=== PATIENT | female | born 1995 | race Caucasian/White ===

== ENCOUNTER → 2023-03-31 10:32 | Outpatient (BNVA) | payer BC, SELFPAY | PROVIDERS: Visit Provider Nurse Practitioner | DX: E03.9 Hypothyroidism, unspecified (principal); R25.1 Tremor, unspecified; E04.9 Nontoxic goiter, unspecified | CPT/HCPCS: 80053; 82306; 83735; 84443; 85025 ==

== ENCOUNTER 2023-04-11 09:21 | Emergency (ER) | payer BC, SELFPAY ==
[2023-04-11 09:34] VITALS: BP 147/95; PULSE 94; RESP 14; TEMP 37; O2SAT 100
--- NOTE | 2023-04-11 09:46 | W.ED.ABDPA2 ---
Documented by User: Katalina Tirado PA-C 04/11/23 11:42 HPI - Abdominal Pain General: Chief Complaint: Abdominal Pain Stated Complaint: left side pain,blood in stool Time Seen by Provider: 04/11/23 09:39 Source: patient Mode of arrival: ambulatory Limitations: no limitations History of Present Illness: 28-year-old female presents to the ER today for blood in her stool that she noticed this morning. Patient reports this was in the water and was bright red. Patient reports she had hemorrhoids when she was however she had pain with those. Patient reports this was painless. She does admit that she has had to strain with bowel movements for the last couple of days. She also noticed after this bowel movement there was some mild left lower quadrant tenderness. She denies any fever or chills. Denies any nausea or vomiting. Denies any history of diverticulitis. Patient reports she is due to start her menstrual cycle in 4 days. Patient does not take a daily stool softener. Denies any pain with urination. Denies any blood in her urine. Review of Systems General: Reports: 10 or more systems reviewed and unremarkable except in HPI and below PFSH ED PFSH: Family History Father Diabetes Type 1 Heart disease Mother Thyroid disease Grandfather Thyroid disease maternal Denies family history of Clotting disorder Chronic kidney disease (CKD) Bleeding disorder Cancer Hypertension Stroke Social History Smoking and tobacco status: light tobacco smoker Alcohol intake: never Substance/Drug Use: never Household members: spouse and family Female Reproductive History: Para: 1 Physical Exam Const: COMMON NORMALS: no acute distress, average body habitus, patient oriented x3, no limitations, healthy appearing, alert and well nourished HENMT: COMMON NORMALS: normocephalic, atraumatic and moist oral mucous membranes HEAD & SCALP: normocephalic and atraumatic Resp: COMMON NORMALS: normal respiratory effort and clear to auscultation bilaterally AUSCULTATION: clear to auscultation bilaterally Cardio: COMMON NORMALS: regular rate, regular rhythm and No murmurs present (Cardio) RATE: regular rate RHYTHM: regular rhythm GI: COMMON NORMALS: Normal to inspection, nondistended, normoactive bowel sounds present, Soft to palpation and non-tender (no LLQ tenderness to palpation) PALPATION: Yes Soft to palpation : RECTO-VAGINAL: other (rectal exam performed, no signs external hemorrhoids) OTHER: No internal hemorrhoids are palpated. Patient did have a positive Hemoccult. Extremity: COMMON NORMALS: normal to inspection, full ROM and no pedal edema Neuro: COMMON NORMALS: patient oriented x3 SENSORIUM/ORIENTATION: Yes alert Psych: COMMON NORMALS: mental status grossly normal, Normal thought process present and cooperative THOUGHT PROCESS: Normal thought process present Skin: COMMON NORMALS: no rashes or lesions noted and no wounds GENERAL SKIN EXAM: no rashes or lesions noted Course ED course: Patient presents to the ER today for left lower quadrant pain that she noticed after she had blood in her bowel movement. Patient reports the blood was more just in the stool water than mixed in with her stool. She does admit to some straining over the last few days. She does have a history of hemorrhoids during however those were painful and this is painless. Patient's exam is mostly unremarkable other than she does have a positive Hemoccult test in the ER with rectal exam. No obvious hemorrhoids are noted or palpated. Physical exam performed in addition to a KUB. Lab work will also be performed. Vital Signs: Vital signs: Vital Signs Temperature 98.6 F 04/11/23 09:34 Pulse Rate 94 04/11/23 09:34 Respiratory Rate 14 04/11/23 09:34 Blood Pressure 147/95 04/11/23 09:34 Pulse Oximetry 100 04/11/23 09:34 Oxygen Delivery Me thod Room Air 04/11/23 09:34 MDM - Abdominal Pain Medical Decision Making Lab work is unremarkable. White count is normal. No signs of anemia. On exam patient had a positive Hemoccult however no hemorrhoids were noted or palpated. Patient did report some constipation although no constipation was really seen on KUB. Patient does not appear to have a surgical abdomen and I have very low suspicion for anything like diverticulitis. I would recommend patient take a stool softener such as MiraLAX and monitor bowel movements over the next several days. If bleeding persists or worsens, return to the ER or follow-up with PCP at the end of the week if not resolved. UA not resulted at the time patient was released home however patient is not concerned for UTI. We can contact patient if abnormal. I do not suspect a UTI based on exam. Lab Data 04/11/23 09:39 04/11/23 09:39 Labs/Radiology: Radiology Impressions KUB X-Ray 04/11/23 09:51 IMPRESSION: No acute findings. Laboratory Results WBC 7.42 10^3/uL (3.29-11.43) 04/11/23 09:39 RBC 4.83 10^6/uL (3.85-5.65) 04/11/23 09:39 Hgb 14.40 g/dL (11.27-16.99) 04/11/23 09:39 Hct 42.6 % (36-47) 04/11/23 09:39 MCV 88.2 fl (85-98) 04/11/23 09:39 MCH 29.8 pg (27-33) 04/11/23 09:39 MCHC 33.8 g/dL (30-55) 04/11/23 09:39 RDW 12.0 % (12.1-15.1) L 04/11/23 09:39 Plt Count 196 10^3/cmm (157-399) 04/11/23 09:39 MPV 10.5 fL (7.4-10.4) H 04/11/23 09:39 Neut % (Auto) 66.9 % 04/11/23 09:39 Lymph % (Auto) 25.7 % 04/11/23 09:39 Hanson % (Auto) 6.5 % 04/11/23 09:39 Eos % (Auto) 0.3 % 04/11/23 09:39 Baso % (Auto) 0.3 % 04/11/23 09:39 Neut # (Auto) 4.97 10^3/uL (1.8-7.7) 04/11/23 09:39 Lymph # (Auto) 1.9 10^3/uL (0.8-4.8) 04/11/23 09:39 Hanson # (Auto) 0.5 10^3/uL (0.2-0.9) 04/11/23 09:39 Eos # (Auto) 0.0 10^3/uL (0.0-0.8) 04/11/23 09:39 Baso # (Auto) 0.0 10^3/uL (0.0-0.1) 04/11/23 09:39 Nucleated RBC % (auto) 0 % 04/11/23 09:39 Nucleated RBCs # 0.0 /100WBC 04/11/23 09:39 Sodium 135 mmol/L (136-145) L 04/11/23 09:39 Potassium 4.3 mmol/L (3.5-5.1) 04/11/23 09:39 Chloride 105 mmol/L (98-107) 04/11/23 09:39 Carbon Dioxide 20 mmol/L (22-29) L 04/11/23 09:39 Anion Gap 14.3 (5-19) 04/11/23 09:39 BUN 12 mg/dL (6-20) 04/11/23 09:39 Creatinine 0.8 mg/dL (0.5-0.9) 04/11/23 09:39 GFR Calculation 85.4 mL/min (90-130) L 04/11/23 09:39 Glucose 94 mg/dL (65-115) 04/11/23 09:39 Calculated Osmolality 280 mOsm/kg (285-295) L 04/11/23 09:39 Calcium 9.1 mg/dL (8.5-10.5) 04/11/23 09:39 Total Bilirubin 0.6 mg/dL (0.15-1.2) 04/11/23 09:39 AST 14 U/L (0-32) 04/11/23 09:39 ALT 12 U/L (0-33) 04/11/23 09:39 Alkaline Phosphatase 68 U/L (35-105) 04/11/23 09:39 Total Protein 7.6 g/dL (6.6-8.7) 04/11/23 09:39 Albumin 4.6 g/dL (3.5-5.2) 04/11/23 09:39 Globulin 3.0 g/dL (1.3-4.6) 04/11/23 09:39 HCG, Qual Negative (Negative) 04/11/23 11:05 Urine Color Light yellow (Yellow) 04/11/23 11:05 Urine Appearance Sl hazy (CLEAR) A 04/11/23 11:05 Urine pH 7 (5-7) 04/11/23 11:05 Ur Specific [place] 1.005 (1.005-1.030) 04/11/23 11:05 Urine Protein Neg (Negative) 04/11/23 11:05 Urine Glucose (UA) Norm (Normal) 04/11/23 11:05 Urine Ketones Negative (Negative) 04/11/23 11:05 Urine Blood Neg (Negative) 04/11/23 11:05 Urine Nitrate Negative (Negative) 04/11/23 11:05 Urine Bilirubin Neg (Negative) 04/11/23 11:05 Urine Urobilinogen Norm mg/dL (Negative) 04/11/23 11:05 Ur Leukocyte Esterase 1+ (Negative) H 04/11/23 11:05 Urine RBC 0-4 /hpf (0-2) H 04/11/23 11:05 Urine WBC 10-15 /hpf (0-5) H 04/11/23 11:05 Ur Squamous Epith Cells 15-25 /hpf (0-5) H 04/11/23 11:05 Amorphous Sediment Not Reportable 04/11/23 11:05 Urine Bacteria 1+ /hpf (NONE) H 04/11/23 11:05 All radiology interpretation(s) finalized by discharge Critical Care Time Critical Care Time: Critical Care Time: No Discharge Plan Discharge Patient Disposition: Home Clinical Impression: Painless rectal bleeding Abdominal pain Qualifiers: Abdominal location: left lower quadrant Qualified Code(s): R10.32 - Left lower quadrant pain Condition: Stable Prescriptions: No Action levothyroxine 88 mcg capsule 88 mcg PO DAILY Discharge Orders: Discharge ED (Routine); Ordered 04/11/23 Ordered By: Katalina Tirado Referrals: Judith Jarquin FNP [Primary Care Provider] - Discharge Diet: Usual diet Discharge Activity: Resume usual activity Patient Instructions: Abdominal Pain (ED), Opioid Safety, Pain Management Activity Restrictions/Additional Instructions: Take MiraLAX as discussed. Continue to monitor blood in the stool. If not improving or if worsening, follow-up with PCP or return to the ER. Push fluids. Coding Level of Care Code ED [employer] Make Up Helper for Chg Fwd Documented by User: Prudencio Storey DO 04/11/23 14:57 HPI - Abdominal Pain General: Chief Complaint: Abdominal Pain Stated Complaint: left side pain,blood in stool Time Seen by Provider: 04/11/23 09:39 PFSH ED PFSH: Family History Father Diabetes Type 1 Heart disease Mother Thyroid disease Grandfather Thyroid disease maternal Denies family history of Clotting disorder Chronic kidney disease (CKD) Bleeding disorder Cancer Hypertension Stroke Social History Smoking and tobacco status: light tobacco smoker Alcohol intake: never Substance/Drug Use: never Household members: spouse and family Course Vital Signs: Vital signs: Vital Signs Temperature 98.6 F 04/11/23 09:34 Pulse Rate 94 04/11/23 09:34 Respiratory Rate 14 04/11/23 09:34 Blood Pressure 147/95 04/11/23 09:34 Pulse Oximetry 100 04/11/23 09:34 Oxygen Delivery Me thod Room Air 04/11/23 09:34 MDM - Abdominal Pain Medical Decision Making Chart reviewed and patient discussed with midlevel. Agree with assessment and plan. Lab work is unremarkable. White count is normal. No signs of anemia. On exam patient had a positive Hemoccult however no hemorrhoids were noted or palpated. Patient did report some constipation although no constipation was really seen on KUB. Patient does not appear to have a surgical abdomen and I have very low suspicion for anything like diverticulitis. I would recommend patient take a stool softener such as MiraLAX and monitor bowel movements over the next several days. If bleeding persists or worsens, return to the ER or follow-up with PCP at the end of the week if not resolved. UA not resulted at the time patient was released home however patient is not concerned for UTI. We can contact patient if abnormal. I do not suspect a UTI based on exam. Lab Data 04/11/23 09:39 04/11/23 09:39 Labs/Radiology: Radiology Impressions KUB X-Ray 04/11/23 09:51 IMPRESSION: No acute findings. Laboratory Results WBC 7.42 10^3/uL (3.29-11.43) 04/11/23 09:39 RBC 4.83 10^6/uL (3.85-5.65) 04/11/23 09:39 Hgb 14.40 g/dL (11.27-16.99) 04/11/23 09:39 Hct 42.6 % (36-47) 04/11/23 09:39 MCV 88.2 fl (85-98) 04/11/23 09:39 MCH 29.8 pg (27-33) 04/11/23 09:39 MCHC 33.8 g/dL (30-55) 04/11/23 09:39 RDW 12.0 % (12.1-15.1) L 04/11/23 09:39 Plt Count 196 10^3/cmm (157-399) 04/11/23 09:39 MPV 10.5 fL (7.4-10.4) H 04/11/23 09:39 Neut % (Auto) 66.9 % 04/11/23 09:39 Lymph % (Auto) 25.7 % 04/11/23 09:39 Hanson % (Auto) 6.5 % 04/11/23 09:39 Eos % (Auto) 0.3 % 04/11/23 09:39 Baso % (Auto) 0.3 % 04/11/23 09:39 Neut # (Auto) 4.97 10^3/uL (1.8-7.7) 04/11/23 09:39 Lymph # (Auto) 1.9 10^3/uL (0.8-4.8) 04/11/23 09:39 Hanson # (Auto) 0.5 10^3/uL (0.2-0.9) 04/11/23 09:39 Eos # (Auto) 0.0 10^3/uL (0.0-0.8) 04/11/23 09:39 Baso # (Auto) 0.0 10^3/uL (0.0-0.1) 04/11/23 09:39 Nucleated RBC % (auto) 0 % 04/11/23 09:39 Nucleated RBCs # 0.0 /100WBC 04/11/23 09:39 Sodium 135 mmol/L (136-145) L 04/11/23 09:39 Potassium 4.3 mmol/L (3.5-5.1) 04/11/23 09:39 Chloride 105 mmol/L (98-107) 04/11/23 09:39 Carbon Dioxide 20 mmol/L (22-29) L 04/11/23 09:39 Anion Gap 14.3 (5-19) 04/11/23 09:39 BUN 12 mg/dL (6-20) 04/11/23 09:39 Creatinine 0.8 mg/dL (0.5-0.9) 04/11/23 09:39 GFR Calculation 85.4 mL/min (90-130) L 04/11/23 09:39 Glucose 94 mg/dL (65-115) 04/11/23 09:39 Calculated Osmolality 280 mOsm/kg (285-295) L 04/11/23 09:39 Calcium 9.1 mg/dL (8.5-10.5) 04/11/23 09:39 Total Bilirubin 0.6 mg/dL (0.15-1.2) 04/11/23 09:39 AST 14 U/L (0-32) 04/11/23 09:39 ALT 12 U/L (0-33) 04/11/23 09:39 Alkaline Phosphatase 68 U/L (35-105) 04/11/23 09:39 Total Protein 7.6 g/dL (6.6-8.7) 04/11/23 09:39 Albumin 4.6 g/dL (3.5-5.2) 04/11/23 09:39 Globulin 3.0 g/dL (1.3-4.6) 04/11/23 09:39 HCG, Qual Negative (Negative) 04/11/23 11:05 Urine Color Light yellow (Yellow) 04/11/23 11:05 Urine Appearance Sl hazy (CLEAR) A 04/11/23 11:05 Urine pH 7 (5-7) 04/11/23 11:05 Ur Specific [place] 1.005 (1.005-1.030) 04/11/23 11:05 Urine Protein Neg (Negative) 04/11/23 11:05 Urine Glucose (UA) Norm (Normal) 04/11/23 11:05 Urine Ketones Negative (Negative) 04/11/23 11:05 Urine Blood Neg (Negative) 04/11/23 11:05 Urine Nitrate Negative (Negative) 04/11/23 11:05 Urine Bilirubin Neg (Negative) 04/11/23 11:05 Urine Urobilinogen Norm mg/dL (Negative) 04/11/23 11:05 Ur Leukocyte Esterase 1+ (Negative) H 04/11/23 11:05 Urine RBC 0-4 /hpf (0-2) H 04/11/23 11:05 Urine WBC 10-15 /hpf (0-5) H 04/11/23 11:05 Ur Squamous Epith Cells 15-25 /hpf (0-5) H 04/11/23 11:05 Amorphous Sediment Not Reportable 04/11/23 11:05 Urine Bacteria 1+ /hpf (NONE) H 04/11/23 11:05 Discharge Plan Discharge Patient Disposition: Home Clinical Impression: Painless rectal bleeding Abdominal pain Qualifiers: Abdominal location: left lower quadrant Qualified Code(s): R10.32 - Left lower quadrant pain Condition: Stable Prescriptions: No Action levothyroxine 88 mcg capsule 88 mcg PO DAILY Discharge Orders: Discharge ED (Routine); Ordered 04/11/23 Ordered By: Katalina Tirado Referrals: Judith Jarquin FNP [Primary Care Provider] - Discharge Diet: Usual diet Discharge Activity: Resume usual activity Patient Instructions: Abdominal Pain (ED), Opioid Safety, Pain Management Activity Restrictions/Additional Instructions: Take MiraLAX as discussed. Continue to monitor blood in the stool. If not improving or if worsening, follow-up with PCP or return to the ER. Push fluids. Coding Level of Care Code ED [employer] Make Up Helper for Dana Lovett
[2023-04-11 09:51] LABS: Basophils % 0.3 %; Eosinophils % 0.3 %; Hematocrit 42.6 % (36-47); Lymphocytes # 1.9 10^3/uL (0.8-4.8); Lymphocytes % 25.7 %; Mean Corpuscular HGB Conc 33.8 g/dL (30-55); Mean Corpuscular Hemoglobin 29.8 pg (27-33); Mean Corpuscular Volume 88.2 fl (85-98); Mean Platelet Volume 10.5 fL (7.4-10.4); Monocytes # 0.5 10^3/uL (0.2-0.9); Monocytes % 6.5 %; Neutrophils # 4.97 10^3/uL (1.8-7.7); Neutrophils % 66.9 %; Nucleated Red Blood Cells % 0 %; Platelet Count 196 10^3/cmm (157-399); Red Blood Count 4.83 10^6/uL (3.85-5.65); White Blood Count 7.42 10^3/uL (3.29-11.43)
--- NOTE | 2023-04-11 09:51 | XRR_ITS ---
PROCEDURE INFORMATION: Exam: XR Abdomen Exam date and time: 04/11/2023 10:04 AM Age: 28 years old Clinical indication: Abdominal pain; Localized; Left lower quadrant (llq); Additional info: Llq abd pain, blood in stool TECHNIQUE: Imaging protocol: Radiologic exam of the abdomen. Views: Frontal supine view of the abdomen. 1 View. COMPARISON: No relevant prior studies available. FINDINGS: Gastrointestinal tract: Normal. No bowel dilation. Bones/joints: Unremarkable. XR/XR KUB [id number] IMPRESSION: No acute findings.
[2023-04-11 10:17] LABS: Alanine Aminotransferase 12 U/L (0-33); Albumin Level 4.6 g/dL (3.5-5.2); Alkaline Phosphatase 68 U/L (35-105); Anion Gap 14.3 (5-19); Aspartate Amino Transferase 14 U/L (0-32); Blood Urea Nitrogen 12 mg/dL (6-20); Calcium 9.1 mg/dL (8.5-10.5); Carbon Dioxide 20 mmol/L (22-29); Chloride 105 mmol/L (98-107); Glomerular Filtration Rate 85.4 mL/min (90-130); Glucose 94 mg/dL (65-115); Osmolality Calculated 280 mOsm/kg (285-295); Potassium 4.3 mmol/L (3.5-5.1); Sodium 135 mmol/L (136-145); Total Bilirubin 0.6 mg/dL (0.15-1.2); Total Protein 7.6 g/dL (6.6-8.7)
[2023-04-11 11:45] LABS: HCG Qualitative Urine. Negative (Negative)
[2023-04-11 11:47] LABS: Urine Appearance SL Hazy (CLEAR); Urine Color Light yellow (Yellow)
[2023-04-11 11:48] LABS: Add Urine Culture? No; Add Urine Microscopic? YES; Bacteria Urine 1+ /hpf; Bilirubin Urine Neg (Negative); Blood Urine Neg (Negative); Glucose Urine UA Norm (Normal); Ketones Urine Negative (Negative); Leukocyte Esterase Urine 1+ (Negative); Nitrate Urine Negative (Negative); Protein Urine Neg (Negative); RBC Urine 0-4 /hpf (0-2); Specific Gravity, Urine 1.005 (1.005-1.030); Squamous Epithelial Cell Urine 15-25 /hpf (0-5); Urobilinogen Urine Norm (Negative); pH Urine 7 (5-7)
== END 2023-04-11 11:57 | disposition home or self-care (01) ==
PROVIDERS: Emergency Provider Physician Assistant; PCP Nurse Practitioner
DX: K62.5 Hemorrhage of anus and rectum (principal); R10.32 Left lower quadrant pain; F17.210 Nicotine dependence, cigarettes, uncomplicated
CPT/HCPCS: 36415; 74018; 80053; 81001; 81025; 85025; 99284

== ENCOUNTER 2023-04-19 09:07 | Outpatient (CLI) | payer BC, SELFPAY ==
--- NOTE | 2023-04-19 09:00 | US_ITS ---
WS: [id number] ULTRASOUND THYROID TECHNIQUE: Ultrasound of the thyroid. CLINICAL INFORMATION: E04.9 - Nontoxic goiter, unspecified COMPARISON: None. FINDINGS: Thyroid: Right and left thyroid lobes are normal in size and echotexture. No thyroid nodules are pres ent. Right thyroid lobe: 3.5 cm x 1.3 cm x 1.2 cm Left thyroid lobe: 3.3 cm x 1.2 cm x 1.0 cm. Isthmus: 0.3 mm. Cervical lymphadenopathy: None. IMPRESSION: 1. Normal thyroid ultrasound examination. 2. No suspicious nodules
== END 2023-04-19 09:08 | disposition home or self-care (01) ==
PROVIDERS: PCP Nurse Practitioner; Visit Provider Nurse Practitioner
DX: E04.9 Nontoxic goiter, unspecified (principal)
CPT/HCPCS: 76536

== ENCOUNTER → 2023-06-24 17:24 | Outpatient (BNVA) | payer BC, SELFPAY | PROVIDERS: PCP Nurse Practitioner; Visit Provider Nurse Practitioner | DX: N39.0 Urinary tract infection, site not specified (principal); R31.9 Hematuria, unspecified | CPT/HCPCS: 81000; 87086 ==

== ENCOUNTER → 2023-11-17 16:37 | Outpatient (BNVA) | payer BC, SELFPAY | PROVIDERS: PCP Nurse Practitioner; Visit Provider Nurse Practitioner | DX: N39.0 Urinary tract infection, site not specified (principal) | CPT/HCPCS: 81000; 87086 ==

== ENCOUNTER → 2024-03-14 13:25 | Outpatient (BNVA) | payer BC, SELFPAY | PROVIDERS: PCP Nurse Practitioner; Visit Provider Nurse Practitioner | DX: E03.9 Hypothyroidism, unspecified (principal) | CPT/HCPCS: 82672; 83001; 83002; 84144; 84403; 84439; 84443; 84480 ==

== ENCOUNTER → 2024-04-18 11:03 | Outpatient (BNVA) | payer BC, SELFPAY | PROVIDERS: PCP Nurse Practitioner; Visit Provider Nurse Practitioner | DX: N39.0 Urinary tract infection, site not specified (principal) | CPT/HCPCS: 81000; 87086 ==

== ENCOUNTER → 2025-05-10 12:25 | Outpatient (BNVA) | payer BC, SELFPAY | PROVIDERS: PCP Nurse Practitioner; Visit Provider Registered Nurse Neonatal Intensive Care | DX: R30.0 Dysuria (principal) | CPT/HCPCS: 81000 ==

== ENCOUNTER → 2025-06-11 12:41 | Outpatient (BNVA) | payer BC, SELFPAY | PROVIDERS: PCP Nurse Practitioner; Visit Provider Emergency Medicine | DX: R10.30 Lower abdominal pain, unspecified (principal); R30.0 Dysuria | CPT/HCPCS: 81000; 87086 ==

== ENCOUNTER → 2025-07-02 13:44 | Outpatient (BNVA) | payer BC, SELFPAY | DX: E03.9 Hypothyroidism, unspecified (principal) | CPT/HCPCS: 80053; 84443; 85025 ==